=== PATIENT | female | born 1965 | race Caucasian/White ===

== ENCOUNTER → 2016-12-09 | Outpatient (CLI) | payer MEDICARE, MEDICAID ==
[~2016-12-09] MED LIST: ACETAMINOPHEN650 M2 PO; ASPIR 8181 MG PO; BACTRIM DS TAB1 EACH PO; BRILINTA90 MG PO; CALCIUM CARBON600 MG PO; CARAFATE1 GM PO; DEPO-PROVE150 MG/11 IM; FISH OIL1000 MG PO; GLIPIZIDE10 MG PO; GLUCOTROL XL10 MG PO; INVOKANA300 MG PO; JANUVIA 100 MG100 MG PO; JENTADUETO 2.51 EACH PO; LEVEMIR FL100 UNIT/1 SUB-Q; LEVEMIR100 UNIT/1 SUB-Q; LIPITOR40 MG PO; LIPITOR80 MG PO; LOPRESSOR25 MG PO; MEDROXYPROGEST2.5 MG PO; NITROSTAT0.4 MG SL; NORVASC2.5 MG PO; OSCAL + D500 MG PO; PROTONIX40 MG PO; SODIUM BICARBO650 MG PO; TRIAMCINOLONE454 GM TOP; TRICOR145 MG PO; TRULICITY1.5 MG/0.5 SUB-Q; VITAMIN B COMP1 EACH PO; VITAMIN D1000 UNI1 PO
== END | disposition disaster alternative care site (69) ==
LOC: LFPA 09:30
DX: Z12.4 Encounter for screening for malignant neoplasm of cervix (principal)
CPT/HCPCS: G0145

== ENCOUNTER → 2016-12-11 | Outpatient (CLI) | payer MEDICARE, MEDICAID | END | disposition disaster alternative care site (69) | LOC: GBCOE 13:43 | DX: Z12.31 Encounter for screening mammogram for malignant neoplasm of breast (principal) | CPT/HCPCS: G0202 ==